=== PATIENT | female | born 1995 | race African-American/Black ===

== ENCOUNTER 2020-03-23 12:25 | Emergency (ER) | payer MEDICARE ==
[~2020-03-23] VITALS: Ht 167.6 cm; Wt 81.6 kg
[2020-03-23] MEDS ORDERED: IBUPROFEN 600 MG TAB PO STA (12:36)
[2020-03-23 12:57] VITALS: BP 126/79
--- NOTE | 2020-03-23 13:22 | Emergency Department Note ---
History of Present Illnes History of Present Illness Chief Complaint: Back Pain History of Present Illness This is a 24 year old female PATIENT IN FROM HOME WITH COMPLAINTS OF RIGHT LOWER BACK PAIN X 1 WEEK; STATES SHE RECENTLY FINISHED A COURSE OF ABX FOR A UTI AND YEAST INFECTION AND IS CONCERNED ABOUT RECURRENT INFECTION. PATIENT STATES THAT HER URINE IS FOUL SMELLING AND SHE HAS URINARY FREQUENCY. Historian: Patient Arrival Mode: Car Sales Assistant Entertainment [employer] Required: No Onset (how long ago): week(s) (1) Location: low back, right side Quality: pain Radiation: other (goes into right buttocks) Severity: moderate Onset quality: gradual Duration (how long): week(s) (1) Timing of current episode: constant Progression: unchanged Chronicity: new Context: recent illness Relieving factors: none Exacerbating factors: movement Associated symptoms: other (urinary frequency) Treatments prior to arrival: none Past Medical/Family History Physician Review I have reviewed the patient's past medical and family history. Any updates have been documented here. Past Medical History Recent Fever: No Clinical Suspicion of Infectio: No New/Unexplained Change in Ment: No Past Medical History: None Past Surgical History: None Social History Smoking Cessation: Never Smoker Counseling Performed: No Alcohol Use: Occasional Any Illegal Drug Use: No TB Exposure/Symptoms: No Physically hurt or threatened: No Family History Family history of heart diseas: No Other Last Tetanus: UTD Any Pre-Existing Lines (PICC,: No Is patient up to date on immun: Yes Last Flu: OOD Last Pneumovax: NA Review of Systems Review of Systems Constitutional: no symptoms EENTM: no symptoms Cardiovascular: no symptoms Respiratory: no symptoms Gastrointestinal: no symptoms Genitourinary: frequency Musculoskeletal: back pain Neurological: no symptoms Psychological: no symptoms Endocrine: no symptoms Hematological/Lymphatic: no symptoms Review of other systems All other systems reviewed and negative. Physical Exam Related Data Allergies: Coded Allergies: azithromycin (Verified Allergy, Severe, SWELLING, 03/23/20) Triage Vital Signs Vital Signs Date Time Temp Pulse Resp B/P (MAP) Pulse Ox O2 Delivery O2 Flow Rate FiO2 03/23/20 12:29 97.3 75 20 126/79 97 Vital signs reviewed: Yes Physical Exam CONSTITUTIONAL Constitutional: well-developed, well-nourished HENT HENT: normocephalic, atraumatic, oropharynx clear/moist, nose normal HENT L/R: left ext ear normal, right ext ear normal EYES Eyes: PERRL, conjunctivae normal NECK Neck: ROM normal PULMONARY Pulmonary: effort normal, breath sounds normal CARDIOVASCULAR Cardiovascular: regular rhythm, heart sounds normal, capillary refill normal, normal rate GASTROINTESTINAL Abdominal: soft, nontender, bowel sounds normal; tender, guarding, rebound, left CVA tenderness, right CVA tenderness GENITOURINARY Genitourinary: exam deferred SKIN Skin: warm, dry MUSCULOSKELETAL Musculoskeletal: other (tenderness to right lower lumbar area into SI joint area, neg SLR, DTR's normal, str/sens intact) NEUROLOGICAL Neurological: alert, oriented x 3, no gross motor or sensory deficits PSYCHOLOGICAL Psychological: mood/affect normal, judgement normal Results Laboratory Laboratory Laboratory Tests Test 03/23/20 12:40 Urine Color Yellow (YELLOW) Urine Clarity Sl cloudy (CLEAR) Urine pH 7 (5 - 7) Urine Specific [place] 1.025 (1.010-1.025) Urine Protein Negative (NEGATIVE) Urine Glucose (UA) Negative (NEGATIVE) Urine Ketones Negative (NEGATIVE) Urine Blood Negative (NEGATIVE) Urine Nitrite Negative (NEGATIVE) Urine Bilirubin Negative (NEGATIVE) Urine Urobilinogen 0.2 mg/dL (0.2 - 1) Urine Leukocyte Esterase Trace (NEGATIVE) Urine RBC None /HPF (0-5) Urine WBC 6-10 /HPF (0-5) Urine Epithelial Cells Many /LPF (NONE) Urine Bacteria Few /HPF (NONE) Urine Test Negative (NEGATIVE) Lab results reviewed: Yes Critical Care Time Subsequent provider I assumed direction of critical care for this patient from another provider of my specialty. Assessment & Plan Assessment & Plan Final Impression: (1) URINARY TRACT INFECTION, SITE NOT SPECIFIED (2) SCIATICA, RIGHT SIDE Assessment & Plan CEFTIN 500 MG PO BID X 7 DAYS, TORADOL 10 MG PO TID PRN (#16), ROBAXIN 750 MG 1- 2 TABS PO TID PRN, FOLLOW UP WITH PCP TOMORROW, RETURN IF SYMPTOMS WORSE, FEVER, LOSS OF BOWEL/BLADDER CONTINENCE, DECREASED SENSATION OR STRENGTH Depart Disposition: HOME, SELF-CARE Last Vital Signs Date Time Temp Pulse Resp B/P (MAP) Pulse Ox O2 Delivery O2 Flow Rate FiO2 03/23/20 12:57 75 20 97 03/23/20 12:29 97.3 126/79 Medications in the ED Ibuprofen 600 mg ONCE STAT PO Last administered on 03/23/20at 12:53; Admin Dose 600 MG; Start 03/23/20 at 12:36; Stop 03/23/20 at 12:38; Status DC DANIKA FERNÁNDEZ MD Mar 23, 2020 13:22
[2020-03-23 13:27] LABS: PREGNANCY TEST, URINE NEGATIVE (NEGATIVE)
[2020-03-23 13:29] LABS: CLARITY,URINE SL CLOUDY (CLEAR); COLOR,URINE YELLOW (YELLOW); LEUKOCYTE ESTERASE ,URINE TRACE (NEGATIVE); NITRITE,URINE NEGATIVE (NEGATIVE); PROTEIN,URINE DIPSTICK NEGATIVE (NEGATIVE)
[2020-03-23 13:30] LABS: BILIRUBIN,URINE NEGATIVE (NEGATIVE); KETONES,URINE NEGATIVE (NEGATIVE); URINE UROBILINOGEN 0.2 mg/dL (0.2 - 1)
[2020-03-23 13:46] LABS: BACTERIA,URINE FEW /HPF; EPITHELIAL CELLS,URINE MANY /LPF
== END 2020-03-23 14:15 | disposition home or self-care (01) ==
LOC: ER 12:25
DX: M54.41 Lumbago with sciatica, right side (principal); N39.0 Urinary tract infection, site not specified
CPT/HCPCS: 81001; 81025; 87086; 99283